=== PATIENT | male | born 1940 | race African-American/Black ===

== ENCOUNTER 2017-06-06 10:16 | Emergency (ER) | payer OTHER ==
--- NOTE | ~2017-06-06 | CR138 ---
[facility] A Service of [facility] & [facility] RADIOLOGY TEXT RESULTS PATIENT: ZULEMA BLISS LOCATION: [place] : 42 UNIT #: [id number] AGE: [address]: Adrianna Verma SEX: M ORDER DR: [id number] [facility] [address] [place], [place] [address] [id number] MR#: [id number] Acc #: [id number] NAME: ZULEMA BLISS : 1940 SEX: M STUDY DATE/TIME: 06/06/2017 UNIT: [place] ROOM: STUDY DESCRIPTION: CR Hand 2 Views Lt Attending Physician: Adrianna Verma P.A.-C. Ordering Physician: Adrianna Verma P.A.-C. Primary Care Physician: Jonathan Meehan M.D. MEDICAL IMAGING REPORT This report is preliminary unless electronic signature is present EXAM Left hand, 3 views, 06/06/2017, 1110 hours. HISTORY 76-year-old man who fell yesterday, complaining of pain in the fifth digit. COMPARISON None FINDINGS AP, lateral, and oblique views demonstrate osteopenia. There is joint space loss, sclerosis, and subarticular cystic change in the distal radius, the lunate, the scaphoid. Cystic lucencies are seen in the triquetrum. There is joint space loss and spurring at the first carpometacarpal joint. There is degenerative change at the first metacarpophalangeal joint. Mild diffuse joint space loss at the PIP and DIP joints without spurring. No acute fracture seen. Specifically no fifth finger fracture. IMPRESSION 1. No fracture or dislocation. 2. There is arthritic change at the wrist at the radiocarpal joint and first carpometacarpal joint with joint space loss and cystic lucencies on both sides of the joint. Findings could represent osteoarthritis. However, correlate with possible changes of rheumatoid arthritis. There is change at the first carpometacarpal joint. There is joint space loss at the PIP and DIP joints without erosions or significant spurring. STAT * RESULT Dictated by... [facility] A Service of [facility] & [facility] RADIOLOGY TEXT RESULTS PATIENT: ZULEMA BLISS LOCATION: [facility] : 41 UNIT #: [id number] AGE: [address]: Adrianna Verma SEX: M ORDER DR: Violette Parra M.D. THIS IS AN ELECTRONICALLY VERIFIED REPORT Violette Parra M.D. at 06/06/2017 2:34 PM Tiera TD: 06/06/2017 11:42 JOB #: [id number] MEDICAL IMAGING REPORT Page 1 of 1 COPY
[~2017-06-06 10:16] MED LIST: ACETAMINOPHEN325 MG PO; ACTOS30 MG PO; ADCIRCA20 MG PO; AEROECLIPSE II1 EACH MC; ALBUTEROL17 GM INH; AMBIEN PO; ASPIRIN81 M1 PO; ASPIRIN81 MG PO; BENADRYL25 MG PO; BISACODYL5 MG PO; CARDIZEM CD240 M2 PO; CATAPRES0.1 MG PO; CIPRO PO; CLONIDINE HCL0.1 MG PO; COMBIVENT INH14.7 GM INH; COMBIVENT RESPIM4 GM IH; COMBIVENT U/D3 M2; COMBIVENT U/D3 ML INH; COMBIVENT14.7 GM INH; CORDARONE200 M1 PO; COUMADIN4 MG PO; COUMADIN5 MG PO; DEXILANT60 MG PO; DILTIAZEM 24HR240 M1 PO; DILTIAZEM 24HR240 M2 PO; DOCU SOFT100 M1 PO; DOCUSATE SODIU100 MG PO; DRISDOL8000 U/ML PO; DULCOLAX10 MG/SUPP RC; DUONEB 2.5-0.5 M3 ML NEB; FLEXERIL10 MG PO; FOSRENOL500 MG PO; GLYNASE PO; HYDROCODON-ACE1 EAC1 PO; HYDROCODON-ACE1 EAC9 PO; HYDROCODONE-APA1 T45 PO; LEVAQUIN750 MG PO; LIPITOR PO; LISINOPRIL20 MG PO; LOPRESSOR PO; LORTAB 5/500 TA1 TA2 PO; LORTAB 7.5-5001 TAB PO; LOVENOX30 MG/0.3 INJ; MICRONASE5 M1 PO; MIRALAX17 GM PO; NASAL 02; NEURONTIN300 MG PO; NEXIUM PO; OMEPRAZOLE40 MG PO; PREDNISONE10 MG PO; PREVACID15 MG PO; PRO-AMATINE5 M1 PO; PROTONIX PO; RENAGEL800 MG PO; SENSIPAR60 MG PO; SENSIPAR90 MG PO; SPIRIVA18 MCG INH; SYMBICORT INH; SYMBICORT80 INH; TOBRAMYCIN300 MG/5 M IV; VANCOMYCIN1.5 GM/250 IV; VITAMIN D2400 UNIT PO; VITAMIN D35000 UNI1 PO; XALATAN OP; ZESTRIL10 MG PO; ZESTRIL40 MG PO; ZITHROMAX1 G/PKT PO; ZOCOR20 MG PO; ZOFRAN PO; [UNRECOGNIZED DRUG - OTHER] HHN
== END 2017-06-06 11:45 | disposition home or self-care (01) ==
LOC: CFTX 10:16 → CED 10:16 → CFTX 11:28
DX: S63.657A Sprain of metacarpophalangeal joint of left little finger, initial encounter (principal); J44.9 Chronic obstructive pulmonary disease, unspecified; I10 Essential (primary) hypertension; J45.909 Unspecified asthma, uncomplicated; E11.9 Type 2 diabetes mellitus without complications; K21.9 Gastro-esophageal reflux disease without esophagitis; I12.9 Hypertensive chronic kidney disease with stage 1 through stage 4 chronic kidney disease, or unspecified chronic kidney disease; N18.9 Chronic kidney disease, unspecified; W01.10XA Fall on same level from slipping, tripping and stumbling with subsequent striking against unspecified object, initial encounter; Y92.009 Unspecified place in unspecified non-institutional (private) residence as the place of occurrence of the external cause
CPT/HCPCS: 29130; 73120; 99283